=== PATIENT | female | born 1990 | race Caucasian/White ===

== ENCOUNTER 2021-01-05 04:26 | Inpatient (IN) ==
[2021-01-05] MEDS ORDERED: CITRIC ACID/SODIUM CITRATE 30 ML UDCUP PO ONE (05:00)
[2021-01-05] MEDS ORDERED: ceFAZolin 2,000 MG/50 ML DUPLEX IV ONE ×2 (05:00→06:10)
[2021-01-05] MEDS ORDERED: LACTATED RINGERS 1,000 ML IV SCH ×2 (05:00→09:00)
[2021-01-05] MEDS ORDERED: OXYTOCIN/LR 20 UNIT/1,000 ML BAG IV PRN (05:05)
[2021-01-05] MEDS ORDERED: FAMOTIDINE 20 MG/2 ML VIAL IV PRN (05:05)
[2021-01-05 05:30] LABS: Basophils % 0.1 % (0.0-0.8); Eosinophils % 0.2 % (0.00-10.9); Hematocrit 36.2 VOL% (35.7-47.0); Hemoglobin 11.8 GM/DL (12.0-16.0); Immature Granulocytes % 0.4 %; Immature Granulocytes Absolute 0.03 #; Lymphocytes # 2.2 10*3/uL (1.4-4.0); Lymphocytes % 27.5 % (21.3-54.2); Mean Corpuscular HGB Conc 32.6 GM/DL (32-36); Mean Corpuscular Volume 97.8 FL (87-102); Mean Platelet Volume 11.7 FL (9.6-12.0); Monocytes % 6.9 % (1.7-12.7); Neutrophils % 64.9 % (38.7-73.9); Platelet Count 108 T/CUMM (130-400); White Blood Count 8.1 T/CUMM (4-12)
[2021-01-05] MEDS ORDERED: miSOPROStoL 200 MCG TABLET ONE (06:01)
[2021-01-05] MEDS ORDERED: OXYTOCIN/LR 20 UNIT/1,000 ML BAG IV ONE ×2 (06:01→09:00)
[2021-01-05] MEDS ORDERED: CARBOPROST TROMETHAMINE 250 MCG/ML AMP IM ONE (06:01)
[2021-01-05] MEDS ORDERED: METHYLERGONOVINE 0.2 MG/1 ML AMP ONE (06:01)
[2021-01-05] MEDS ORDERED: TRANEXAMIC ACID 1,000 MG/10 ML VIAL ONE (06:01)
[2021-01-05] MEDS ORDERED: BUPIVACAINE SPINAL 0.75% 2 ML AMP SPINAL ONE (07:30)
[2021-01-05] MEDS ORDERED: ONDANSETRON 4 MG/2 ML VIAL ONE ×2 (07:30→07:31)
[2021-01-05] MEDS ORDERED: PHENYLEPHRINE 1 MG/10 ML SYRINGE IV ONE ×2 (07:57→08:32)
[2021-01-05] MEDS ORDERED: ePHEDrine 50 MG/ML VIAL ONE (08:00)
[2021-01-05] MEDS ORDERED: LACTATED RINGERS 1,000 ML IV ONE (08:14)
[2021-01-05] MEDS ORDERED: TISSUE ADHESIVE 1 EACH APPLICATOR TOP ONE (08:31)
[2021-01-05 08:43] LABS: Bilirubin,Urine Negative (Negative); Blood, Urine Negative (Negative); Glucose,Urine (UA) Negative (Negative); Ketones,Urine Negative (Negative); Mucus,Urine Occasional /LPF (Occasional); Nitrite,Urine Negative (Negative); Protein,Urine Negative; Urine Appearance CLEAR (Clear); Urine Color Straw (Yellow); Urine Urobilinogen < 2.0 EU/DL (0.2-1.0)
[2021-01-05 08:48] LABS: Cord Venous Blood HCO3 23.5 MMOL/L; Cord Venous Blood PO2 28.8
[2021-01-05] MEDS ORDERED: RHO(D) IMMUNE GLOBULIN 300 MCG SYRINGE IM ONE (09:00)
[2021-01-05] MEDS ORDERED: ONDANSETRON 4 MG/2 ML VIAL IV PRN (09:00)
[2021-01-05] MEDS ORDERED: ACETAMINOPHEN 325 MG TABLET PO PRN (09:00)
[2021-01-05] MEDS ORDERED: KETOROLAC 30 MG/1 ML VIAL ONE (09:03)
[2021-01-05] MEDS ORDERED: ACETAMINOPHEN INJ 1,000 MG/100 ML VIAL IV ONE (09:03)
[2021-01-05] MEDS ORDERED: DEXAMETHASONE 4 MG/1 ML VIAL ONE (09:03)
[2021-01-05] MEDS: ACETAMINOPHEN 500 MG TABLET PO SCH ×2 (15:04→20:48)
[2021-01-05] MEDS: KETOROLAC 30 MG/1 ML VIAL IV SCH ×2 (15:09→20:47)
[2021-01-05] MEDS: ceFAZolin 2,000 MG in SODIUM CHLORIDE 0.9% 100 ML IV SCH ×2 (15:55→22:34)
[2021-01-05] MEDS: MULTIVITAMIN (PRENATAL) TABLET PO SCH (15:55)
[2021-01-05] MEDS: DOCUSATE SODIUM 100 MG CAPSULE PO SCH ×2 (15:55→23:38)
[2021-01-05 16:11] LABS: Basophils % 0.1 % (0.0-0.8); Hematocrit 31.6 VOL% (35.7-47.0); Hemoglobin 10.2 GM/DL (12.0-16.0); Immature Granulocytes % 0.6 %; Immature Granulocytes Absolute 0.08 #; Lymphocytes # 1.3 10*3/uL (1.4-4.0); Lymphocytes % 9.4 % (21.3-54.2); Mean Corpuscular HGB Conc 32.3 GM/DL (32-36); Mean Corpuscular Volume 98.4 FL (87-102); Mean Platelet Volume 12.3 FL (9.6-12.0); Monocytes % 6.7 % (1.7-12.7); Neutrophils % 83.2 % (38.7-73.9); Platelet Count 102 T/CUMM (130-400); Red Blood Count 3.21 MC/CUMM (3.8-5.5); Red Cell Distribution Width 13.1 % (9.3-17.3)
[2021-01-05 16:16] LABS: White Blood Count 13.8 T/CUMM (4-12)
[2021-01-06] MEDS: KETOROLAC 30 MG/1 ML VIAL IV SCH (04:04)
[2021-01-06] MEDS: ACETAMINOPHEN 500 MG TABLET PO SCH (04:05)
[2021-01-06 05:56] LABS: Basophils % 0.1 % (0.0-0.8); Eosinophils % 0.2 % (0.00-10.9); Hematocrit 29.2 VOL% (35.7-47.0); Hemoglobin 9.3 GM/DL (12.0-16.0); Immature Granulocytes % 0.5 %; Immature Granulocytes Absolute 0.04 #; Lymphocytes % 23.5 % (21.3-54.2); Mean Corpuscular HGB Conc 31.8 GM/DL (32-36); Mean Corpuscular Volume 101.4 FL (87-102); Mean Platelet Volume 12.1 FL (9.6-12.0); Monocytes % 7.2 % (1.7-12.7); Neutrophils % 68.5 % (38.7-73.9); Red Blood Count 2.88 MC/CUMM (3.8-5.5); Red Cell Distribution Width 13.2 % (9.3-17.3)
[2021-01-06 06:12] LABS: Platelet Count 100 T/CUMM (130-400); White Blood Count 8.6 T/CUMM (4-12)
[2021-01-06 06:27] LABS: Hypochromasia 1+; Microcytosis 1+
[2021-01-06] MEDS: MULTIVITAMIN (PRENATAL) TABLET PO SCH (08:40)
[2021-01-06] MEDS: SIMETHICONE CHEW 80 MG TABLET PO PRN ×2 (08:40→21:33)
[2021-01-06] MEDS: DOCUSATE SODIUM 100 MG CAPSULE PO SCH ×2 (08:40→21:33)
[2021-01-06] MEDS: MAGNESIUM HYDROXIDE SUSP 30 ML UDCUP PO PRN ×2 (08:40→21:33)
[2021-01-06] MEDS: IBUPROFEN 800 MG TABLET PO PRN ×2 (10:26→17:18)
[2021-01-07] MEDS: IBUPROFEN 800 MG TABLET PO PRN ×2 (00:24→11:27)
[2021-01-07 08:19] VITALS: BP 108/54
[2021-01-07] MEDS: MAGNESIUM HYDROXIDE SUSP 30 ML UDCUP PO PRN (08:48)
[2021-01-07] MEDS: DOCUSATE SODIUM 100 MG CAPSULE PO SCH (08:48)
[2021-01-07] MEDS: MULTIVITAMIN (PRENATAL) TABLET PO SCH (08:48)
[2021-01-07] MEDS: SIMETHICONE CHEW 80 MG TABLET PO PRN (08:48)
[2021-01-07] MEDS ORDERED: DIPH/TET/ACEL PERT BOOSTER VACCINE 0.5 ML VIAL IM ONE (10:03)
== END 2021-01-07 13:10 | disposition home or self-care (01) | DRG 788 ==
LOC: N.LD 04:26 → N.OB 16:10
PROVIDERS: ADMIT Student in an Organized Health Care Education/Training Program; ATTEND Student in an Organized Health Care Education/Training Program
PROC: LDCSECT (ICD-10-PCS; 2021-01-05 08:00)